=== PATIENT | male | born 1965 | race Caucasian/White ===

== ENCOUNTER 2022-09-06 04:04 | Emergency (ER) | payer SELFPAY ==
[~2022-09-06] VITALS: Ht 167.6 cm; Wt 71.7 kg
[2022-09-06 10:02] LABS: BASOPHILS % 0.1 % (0.0-2.0); EOSINOPHILS % 0.9 % (0.0-5.0); HEMATOCRIT. 41.2 % (42.0-52.0); HEMOGLOBIN. 14.1 g/dL (14.0-18.0); LYMPHOCYTES % 48.9 % (20.0-50.0); MEAN CORPUSCULAR HEMOGLOBIN 31.5 pg (28.0-32.0); MEAN CORPUSCULAR VOLUME 92.5 fL (80.0-94.0); MEAN PLATELET VOLUME 6.4 fl (7.4-10.4); MONOCYTES % 5.7 % (2.0-8.0); NEUTROPHILS % 44.4 % (40.0-76.0); PLATELET 258 x1000/uL (130-400); RED BLOOD CELL COUNT 4.46 mill/uL (4.7-6.1)
[2022-09-06 10:07] LABS: CHLORIDE 108 mEq/L (98-107)
[2022-09-06] MEDS ORDERED: MAGNESIUM/ALUMINUM HYDROXIDE/SIMETHICONE 30ML UDC PO STA (10:35)
[2022-09-06] MEDS ORDERED: FAMO-135 MT (10:36)
[2022-09-06] MEDS ORDERED: FAMOTIDINE 20MG TABLET PO ONE (10:45)
[2022-09-06 11:30] VITALS: BP 143/64
== END 2022-09-06 11:31 | disposition home or self-care (01) ==
LOC: ER 04:04
DX: R10.13 Epigastric pain (principal); Z98.890 Other specified postprocedural states
CPT/HCPCS: 36415; 76705; 80053; 85025; 93005; 99285